=== PATIENT | female | born 1955 | race African-American/Black ===

== ENCOUNTER 2016-09-07 06:52 | Emergency (ER) | payer BC ==
[~2016-09-07] VITALS: Ht 170.2 cm; Wt 65.8 kg
== END 2016-09-07 09:14 | disposition home or self-care (01) ==
LOC: CED 06:52
DX: R04.0 Epistaxis (principal); F17.200 Nicotine dependence, unspecified, uncomplicated
CPT/HCPCS: 30901; 99283